=== PATIENT | male | born 1960 | race Caucasian/White ===

== ENCOUNTER 2018-09-23 10:36 | Emergency (ER) | payer MEDICAID, OTHER ==
[~2018-09-23] VITALS: Ht 180.3 cm; Wt 93.9 kg
--- NOTE | 2018-09-23 10:55 | NUR ---
BIBA RA 83 "Homeless/ETOH was sleeping in front of [employer] store", Patient a/ox3, breathing even and unlabored, no sob noted, placed on the monitor. Will continue to monitor.
--- NOTE | 2018-09-23 12:21 | NUR ---
PATIENT ASSISTED TO RESTROOM.
--- NOTE | 2018-09-23 12:37 | NUR ---
PATIENT INSISTED ON LEAVING, PATIENT AMBULATES IN A STEADY GAIT. DR. CUEVA AWARE, REFUSED TO SEE DIRECTOR EMERGENCY SERVICES AND REFUSED TO SIGN HOMELESS WAIVER. PATIENT GIVEN DISCHARGE INSTRUCTIONS, PATIENT VERBALIZED UNDERSTANDING. PATIENT LEFT IN STABLE CONDITION.
[2018-09-23 12:41] VITALS: BP 110/94
== END 2018-09-23 12:42 | disposition home or self-care (01) ==
LOC: ER 10:42
DX: F10.129 Alcohol abuse with intoxication, unspecified (principal); Y90.9 Presence of alcohol in blood, level not specified; Z59.0 Homelessness

== ENCOUNTER 2018-12-01 12:04 | Emergency (ER) | payer MEDICAID, OTHER ==
[~2018-12-01] VITALS: Ht 170.2 cm; Wt 91.6 kg
--- NOTE | 2018-12-01 12:04 | NUR ---
PT BIBRA 41 FROM [facility] C/O ETOH, PT IS [id number], NOT IN RESPIRATORY DISTRESS, V/S STABLE, KEPT RESTED AND COMFORTABLE, WILL CONTINUE TO MONITOR.
--- NOTE | 2018-12-01 12:14 | NUR ---
JOANA CRUZ AT BEDSIDE FOR EVAL.
--- NOTE | 2018-12-01 14:02 | NUR ---
Patient given written and verbal discharge instructions. Patient verbalizes understanding of instructions. Patient is ambulatory with steady gait. Refuses offer of jail placement. Patient given list of available shelters in surrounding area.
[2018-12-01 14:03] VITALS: BP 122/72
== END 2018-12-01 14:04 | disposition home or self-care (01) ==
LOC: ER 12:04
DX: F10.129 Alcohol abuse with intoxication, unspecified (principal); Z59.0 Homelessness; Y90.9 Presence of alcohol in blood, level not specified
CPT/HCPCS: 82962-TC

== ENCOUNTER 2019-03-21 15:07 | Emergency (ER) | payer MEDICAID, OTHER ==
[~2019-03-21] VITALS: Ht 180.3 cm; Wt 79.8 kg
[2019-03-21] MEDS: LORAZEPAM INJ 2 MG/ML VIAL IVP ONE (15:20)
[2019-03-21] MEDS: IV NS 0.9% 1,000 ML BAG IV ONE (15:20)
--- NOTE | 2019-03-21 15:20 | NUR ---
CECILIA, FROM HOME, HAD A SEIZURE FROM ALCOHOL WITHDRAWAL. ON ROOM AIR, BREATHING EVENLY AND UNLABORED. CONNECTED TO THE MONITOR AND PULSE OX. SEIZURE PREC INITIATED. KEPT COMFORTABLE, WILL CONTINUE TO MONITOR ACCORDINGLY.
[2019-03-21] MEDS ORDERED: LORAZEPAM INJ 2 MG/ML VIAL ONE (15:22)
[2019-03-21 15:28] LABS: BASOPHILS % (AUTO) 0.6 % (0.0-2.0); EOSINOPHILS % (AUTO) 0.4 % (0.0-6.0); HEMATOCRIT 36 % (39-51); HEMOGLOBIN 12.1 g/dL (13.5-17.5); LYMPHOCYTES # (AUTO) 1.2 /CMM (0.8-4.8); LYMPHOCYTES % (AUTO) 16.6 % (20.0-44.0); MEAN CORPUSCULAR HGB CONC 34 g/dl (31.0-36.0); MEAN CORPUSCULAR VOLUME 96 fL (80-96); MONOCYTES # (AUTO) 0.6 /CMM (0.1-1.30); MONOCYTES % (AUTO) 7.9 % (2.0-12.0); NEUTROPHILS # (AUTO) 5.3 /CMM (1.8-8.9); NEUTROPHILS % (AUTO) 74.5 % (43.0-81.0); PLATELET COUNT (AUTO) 90 /CMM (150-450); RED BLOOD CELL COUNT(AUTO) 3.79 MIL/uL (4.5-6.0); WHITE BLOOD COUNT (AUTO) 7.2 K/uL (4.3-11.0)
[2019-03-21 15:34] LABS: CALCIUM, SERUM 8.6 mg/dL (8.5-10.1); CREATININE 1.2 mg/dL (0.6-1.3); POTASSIUM 3.4 mmol/L (3.5-5.1)
--- NOTE | 2019-03-21 15:36 | NUR ---
wheeled patient via rney for ct scan
[2019-03-21 16:44] VITALS: BP 145/81
--- NOTE | 2019-03-21 16:44 | NUR ---
Patient discharged to home in stable condition. Written and verbal after care instructions given. Patient verbalizes understanding of instruction.IV removed. Catheter intact and site benign. Pressure and 4x4 applied to site. No bleeding noted.
== END 2019-03-21 16:44 | disposition home or self-care (01) ==
LOC: ER 15:10
DX: F10.239 Alcohol dependence with withdrawal, unspecified (principal); R56.9 Unspecified convulsions; R41.0 Disorientation, unspecified; Y90.9 Presence of alcohol in blood, level not specified; Z59.0 Homelessness
CPT/HCPCS: 36415; 70450; 80048; 85025; 96361; 96374; 99284; J2060; J7030